=== PATIENT | female | born 1990 | race American Indian/Alaskan Native ===

== ENCOUNTER 2017-05-30 09:22 | Emergency (ER) | payer OTHER, MEDICAID ==
[2017-05-30 09:42] VITALS: RESP 18
--- NOTE | 2017-05-30 10:24 | ED PDOC ---
Arrival/HPI - General Chief Complaint: Lower Extremity Problem/Injury Time Seen by Provider: 05/30/17 09:52 Historian: Patient - History of Present Illness Narrative History of Present Illness (Text): 05/30/17 10:21 27yo female present with complaint of left foot pain s/p trauma 4hrs ago. Patient states a crate pushed on her posterior left leg at work. She was able to ambulate s/p. Notes that pain started hours later after taking off her shoes. She did not take any medication for pain. Pain with weight bearing. Past Medical History - Provider Review Nursing Documentation Reviewed: Yes - Psychiatric Hx Psychophysiologic Disorder: No Hx Substance Use: No - Surgical History Hx Section: Yes Other/Comment: laprascopic Family/Social History - Physician Review Nursing Documentation Reviewed: Yes Family/Social History: Unknown Family HX Smoking Status: Never Smoked Hx Alcohol Use: Yes Frequency of alcohol use: Few days per week Hx Substance Use: No Allergies/Home Meds Allergies/Adverse Reactions: Allergies No Known Allergies Allergy (Verified 05/30/17 09:42) Review of Systems - Physician Review All systems were reviewed & negative as marked: Yes - Review of Systems Constitutional: Normal Eyes: Normal ENT: Normal Respiratory: Normal Cardiovascular: Normal Gastrointestinal: Normal Genitourinary Female: Normal Musculoskeletal: Arthralgias (LEft foot pain) Skin: Normal Neurological: Normal Endocrine: Normal Hemo/Lymphatic: Normal Psychiatric: Normal Physical Exam Vital Signs Reviewed: Yes Vital Signs Temp Pulse Resp BP Pulse Ox 05/30/17 09:37 98.2 F 78 18 148/68 98 Temperature: Afebrile Blood Pressure: Normal Pulse: Regular Respiratory Rate: Normal Appearance: Positive for: Well-Appearing, Non-Toxic, Comfortable Pain Distress: None Mental Status: Positive for: Alert and Oriented X 3 - Systems Exam Head: Present: Atraumatic, Normocephalic Pupils: Present: PERRL Extroacular Muscles: Present: EOMI Conjunctiva: Present: Normal Mouth: Present: Moist Mucous Membranes Neck: Present: Normal Range of Motion Respiratory/Chest: Present: Clear to Auscultation, Good Air Exchange. No: Respiratory Distress, Accessory Muscle Use Cardiovascular: Present: Regular Rate and Rhythm, Normal S1, S2. No: Murmurs Abdomen: Present: Normal Bowel Sounds. No: Tenderness, Distention, Peritoneal Signs Back: Present: Normal Inspection Upper Extremity: Present: Normal Inspection. No: Cyanosis, Edema Lower Extremity: Present: Normal Inspection, NORMAL PULSES, Tenderness (Left diffuse foot), Neurovascularly Intact. No: Edema, Normal ROM (Limited on dorsion/plantar flexion secondary to pain), Swelling, Deformity Neurological: Present: GCS=15, CN II-XII Intact, Speech Normal Skin: Present: Warm, Dry, Normal Color. No: Rashes Psychiatric: Present: Alert, Oriented x 3, Normal Insight, Normal Concentration Medical Decision Making ED Course and Treatment: 05/30/17 10:38 Left foot xray - No acute fracture/dislocation notes Aircast placed Crutches given Referred to ortho TRT ED for any new symptoms - RAD Interpretation Radiology Orders: 05/30/17 09:52 FOOT LEFT 3 VIEWS ROUTINE [RAD] Stat - Medication Orders Current Medication Orders: Discontinued Medications Ketorolac Tromethamine (Toradol) 60 mg IM STAT STA Stop: 05/30/17 09:53 Last Admin: 05/30/17 10:06 Dose: 60 mg MAR Pain Assessment Document 05/30/17 10:06 KK (Rec: 05/30/17 10:07 [id number] Pain Reassessment Is this a pain reassessment? No Sleep Is patient sleeping during reassessment? No Presence of Pain Presence of Pain Yes Pain Scale Used Pain Scale Used Numeric Location Left, Right or Bilateral Left Pain Location Body Site Ankle Foot Description Description Constant Intensity of Pain at present 8 Acceptable Level of Pain 3 IM Administration Charges Document 05/30/17 10:06 KK (Rec: 05/30/17 10:07 [id number]) Charges for Administration # of IM Administrations 1 Disposition/Present on Arrival - Present on Arrival Any Indicators Present on Arrival: No History of DVT/PE: No History of Uncontrolled Diabetes: No Urinary Catheter: No History of Decub. Ulcer: No History Surgical Site Infection Following: None - Disposition Have Diagnosis and Disposition been Completed?: Yes Diagnosis: Foot sprain Disposition: HOME/ ROUTINE Disposition Time: 10:40 Patient Plan: Discharge Condition: STABLE Discharge Instructions (ExitCare): Foot Sprain (ED) Additional Instructions: Rest, Ice, compress and elevate foot Follow up with your doctor/orthopedist Return to Ed for any new symptoms Prescriptions: Ibuprofen [Motrin Tab] 600 mg PO Q6 #20 tab Referrals: Herbert Bourne III, MD [Medical Doctor] - Follow up with primary Forms: Digital [employer] (Setswana), WORK NOTE
--- NOTE | 2017-05-30 10:50 | RAD ---
PROCEDURE: Left Foot Radiographs. HISTORY: foot pain s/p trauma COMPARISON: None. FINDINGS: BONES: Normal. No fracture. JOINTS: Normal. SOFT TISSUES: Normal. OTHER FINDINGS: None. IMPRESSION: Normal left foot radiographs.
[2017-05-30 11:24] VITALS: BP 120/67; PULSE 74; TEMP 98.2; O2SAT 100
== END 2017-05-30 11:21 | disposition home or self-care (01) ==
LOC: ED 09:22 → MERGE 09:22 → ED 11:21
DX: S93.602A Unspecified sprain of left foot, initial encounter (principal); W22.8XXA Striking against or struck by other objects, initial encounter; Y99.0 Civilian activity done for income or pay
CPT/HCPCS: 73630; 96372; 99283; J1885